=== PATIENT | male | born 2000 | race African-American/Black ===

== ENCOUNTER 2021-11-04 10:53 | Emergency (ER) | payer SELFPAY ==
[~2021-11-04] VITALS: Ht 157.5 cm; Wt 64.0 kg
[2021-11-04] MEDS ORDERED: LORAZEPAM 0.5MG TABLET PO ONE (12:00)
[2021-11-04 13:04] LABS: BASOPHILS % 0.4 % (0.0-2.0); EOSINOPHILS % 0.1 % (0.0-5.0); HEMATOCRIT. 48.8 % (42.0-52.0); HEMOGLOBIN. 15.9 g/dL (14.0-18.0); LYMPHOCYTES % 13.6 % (20.0-50.0); MEAN CORPUSCULAR VOLUME 88.9 fL (80.0-94.0); MONOCYTES % 3.4 % (2.0-8.0); NEUTROPHILS % 82.5 % (40.0-76.0); PLATELET 534 x1000/uL (130-400); RED BLOOD CELL COUNT 5.49 mill/uL (4.7-6.1); RED CELL DISTRIBUTION WIDTH 13.2 % (11.6-14.6)
[2021-11-04 13:11] LABS: CHLORIDE 103 mEq/L (98-107)
[2021-11-04 13:16] LABS: ETHANOL BLOOD < 10 mg/dL
[2021-11-04 14:04] LABS: CLARITY URINE CLEAR (CLEAR); COLOR URINE YELLOW (YELLOW); KETONES URINE 3+ (NEGATIVE); LEUKOCYTE ESTERASE URINE NEGATIVE (NEGATIVE); NITRITE URINE NEGATIVE (NEGATIVE); OCCULT BLOOD URINE 1+ (NEGATIVE); PH URINE 5.5 (4.5-8.0); PROTEIN URINE NEGATIVE (NEGATIVE); SPECIFIC GRAVITY URINE 1.024 (1.005-1.030)
[2021-11-04 14:26] LABS: *AMPHETAMINES SCREEN URINE PRESUMTIVE POSITIVE (NEGATIVE); *BARBITURATES SCREEN URINE NEGATIVE (NEGATIVE); *BENZODIAZEPINES SCREEN URINE NEGATIVE (NEGATIVE); *COCAINE SCREEN URINE NEGATIVE (NEGATIVE)
[2021-11-04 14:27] LABS: CANNABINOID URINE SCREEN PRESUMTIVE POSITIVE (NEGATIVE); METHADONE URINE SCREEN NEGATIVE (NEGATIVE); OPIATES URINE SCREEN NEGATIVE (NEGATIVE); PHENCYCLIDINE URINE SCREEN NEGATIVE (NEGATIVE)
[2021-11-04 15:50] VITALS: BP 128/75
== END 2021-11-04 16:07 | disposition home or self-care (01) ==
LOC: ER 10:53
DX: F41.9 Anxiety disorder, unspecified (principal); R44.0 Auditory hallucinations; F12.920 Cannabis use, unspecified with intoxication, uncomplicated; F12.90 Cannabis use, unspecified, uncomplicated; F15.90 Other stimulant use, unspecified, uncomplicated; F16.90 Hallucinogen use, unspecified, uncomplicated; F33.9 Major depressive disorder, recurrent, unspecified; Z71.51 Drug abuse counseling and surveillance of drug abuser; Z79.899 Other long term (current) drug therapy
CPT/HCPCS: 36415; 80053; 80305; 80307; 80320; 80329; 81003; 85025; 99283; G0480